=== PATIENT | female | born 1950 | race Caucasian/White ===

== ENCOUNTER 2018-07-11 20:28 | Inpatient (IN) | payer MEDICARE ==
[~2018-07-11] VITALS: Ht 152.4 cm; Wt 122.7 kg
--- NOTE | 2018-07-11 21:00 | NUR ---
PT IN WITH C/O DIARRHEA AND NEAR SYNCOPE EPISODE WHEN SHE WAS HAVING A BM. HAD EXPLOSIVE DIARRHEA, CLEANED PATIENT UP FAMILY ASSISTED. PROVIDER NOTIFIED.
[2018-07-11 21:51] LABS: BASOPHILS 0.1 % (0-2); EOSINOPHILS 0.3 % (0-7); HEMOGLOBIN 13.1 g/dL (12-16); IMMATURE GRANULOCYTES 0.4 % (0-5); LYMPHOCYTES 4.5 % (15-50); MCH 31.3 pg (26.0-34.0); MCHC 32.8 g/dL (31.0-37.0); MCV 95.5 fL (80.0-100.0); MEAN PLATELET VOLUME 11.1 fL (7.4-10.4); MONOCYTES 8.6 % (2-11); NEUTROPHILS 86.1 % (40-80); PLATELET COUNT 222 10x3/uL (130-400); RBC 4.19 10x6/uL (4.00-5.40); RDW 14.2 % (11.5-14.5); WBC 19.6 10x3/uL (4.8-10.8)
[2018-07-11 22:09] LABS: ALBUMIN 3.4 g/dL (3.4-5.0); ALKALINE PHOSPHATASE 106 U/L (46-116); ALT (SGPT) 25 U/L (10-68); CALC OSMOLALITY 286 mosm/kg (275-300); CARBON DIOXIDE 20.2 mmol/L (21.0-32.0); CHLORIDE - SERUM 104 mmol/L (98-107); CREATININE - SERUM 1.8 mg/dL (0.6-1.3); GLUCOSE 211 mg/dL (74-106); POTASSIUM - SERUM 5.2 mmol/L (3.5-5.1); PROTEIN - SERUM 7.4 g/dL (6.4-8.2); SODIUM 137 mmol/L (136-145); UREA NITROGEN 33 mg/dL (7-18); eGFR NON AFRICAN AMERICAN 30 mL/min (90-120)
[2018-07-11 22:16] LABS: AMYLASE - SERUM 299 U/L (25-115); LIPASE 98 U/L (73-393)
[2018-07-11 22:17] LABS: TROPONIN-I < 0.017 ng/mL (0.000-0.060)
[2018-07-11 22:28] VITALS: BP 131/68
--- NOTE | 2018-07-11 23:08 | NUR ---
CLEANED PATIENT UP SINCE ARRIVAL SHE HAS HAD THREE EPISODES OF DIARRHEA, THE LAST ONE HAD BLOOD STREAKS, BROWN STOOL. PATIENT GOING TO CT AFTER CLEANUP VIA STRETCHER PER TECH.
[2018-07-12] VITALS (9 sets, daily range): BP systolic 109–132; BP diastolic 40–61; BMI 48.9
--- NOTE | 2018-07-12 00:15 | NUR ---
PT RESTING QUIETLY ON STRETCHER AT THIS TIME, HER [id number] AT BEDSIDE, CALL LIGHT WITHIN REACH, NO COMPLAINTS AT THIS TIME.
--- NOTE | 2018-07-12 02:45 | NUR ---
PT ARRIVED TO UNIT FROM ER VIA STRETCHER TO ROOM 2101. ABLE TO STAND AND WALK TO BED. ALERT/ORIENTED. IV FLAGYL COMPLETING TO IV IN RIGHT HAND. PT SETTLED INTO BED.
[2018-07-12] MEDS ORDERED: LISINOPRIL40 MG PO (03:19)
[2018-07-12] MEDS ORDERED: NOVOLIN 70/30 110 ML (03:20)
[2018-07-12] MEDS ORDERED: LOVASTATIN20 MG (03:22)
[2018-07-12] MEDS ORDERED: LOPRESSOR25 MG (03:22)
[2018-07-12] MEDS ORDERED: ELAVIL75 MG PO (03:22)
[2018-07-12] MEDS ORDERED: OMEPRAZOLE40 MG (03:26)
[2018-07-12] MEDS ORDERED: HYDROCODON-ACE1 EAC7 PO (03:27)
[2018-07-12] MEDS ORDERED: ANTIVERT12.5 MG (03:27)
[2018-07-12 04:10] LABS: APPEARANCE TURBID (CLEAR); BILIRUBIN NEGATIVE (NEGATIVE); COLOR DK YELLOW (YELLOW); GLUCOSE 500 mg/dL (NEGATIVE); KETONE NEGATIVE (NEGATIVE); NITRITE NEGATIVE (NEGATIVE); PROTEIN TRACE mg/dL (NEGATIVE); SPECIFIC GRAVITY 1.015 (1.005-1.020); UROBILINOGEN NORMAL (NORMAL); WHITE CELLS - URINE >50 /hpf (0-5)
[2018-07-12 04:11] LABS: BACTERIA MANY /hpf (NONE SEEN); EPITHELIAL CELLS 0-5 /hpf (0-5); RED CELLS - URINE 0-5 /hpf (0-5)
--- NOTE | 2018-07-12 05:01 | NUR ---
ADMISSION HISTORY AND ASSESSMENT COMPLETED. ATTEMPTED TO COMPLETE HOME MED LIST AND PT ONLY ABLE TO PROVIDE SOME NAMES, VERY FEW DOSAGES. SHE SAYS A COMPLETE HOME MED LIST WAS GIVEN TO THE EMS PEOPLE, BUT NO ONE COULD FIND IT IN THE ER. WILL HAVE FAMILY BRING MEDS TOMORROW FOR CLARIFICATION.
--- NOTE | 2018-07-12 07:59 | NUR ---
PATIENT IS ALERT/ORIENT. IN BATHROOM. EXPLOSIVE DIARRHEA. NEW GOWN AND BRIEFS GIVEN TO PATIENT. ABLE TO REACH CALL LIGHT. WILL CONTINUE TO MONITOR
[2018-07-12] MEDS ORDERED: AMITRIPTYLINE100 MG PO (09:28)
[2018-07-12] MEDS ORDERED: TOPROL XL50 MG PO (09:31)
[2018-07-12] MEDS ORDERED: METOPROLOL TART50 MG PO (09:32)
[2018-07-12] MEDS ORDERED: LOVASTATIN20 MG PO (09:33)
[2018-07-12] MEDS ORDERED: OMEPRAZOLE20 M1 PO (09:35)
[2018-07-12] MEDS ORDERED: CYCLOBENZAPRINE10 MG PO (09:37)
[2018-07-12] MEDS ORDERED: CELEXA40 MG PO (09:38)
[2018-07-12] MEDS ORDERED: HCTZ25 MG PO (09:39)
[2018-07-12] MEDS ORDERED: MOBIC7.5 MG PO (09:39)
[2018-07-12] MEDS ORDERED: ADIPEX-P37.5 M1 PO (09:40)
[2018-07-12] MEDS ORDERED: NOVOLIN 70/30 110 ML SC (09:43)
[2018-07-12] MEDS ORDERED: HUMULIN R100 U/ML SC (09:44)
--- NOTE | 2018-07-12 10:21 | NUR ---
DAUGHTER BROUGHT IN MEDICATIONS PATIENT WAS TAKING AT HOME. RECONS MEDICATIONS. WAITING ON DR SIMONS TO LOOK OVER RECONSILED MEDICATIONS
--- NOTE | 2018-07-12 10:56 | NUR ---
ALERT AND ORIENTED X4. RESTING IN BED. QM NURSE SHIFT ASSESSMENT REVIEWED. AGREE WITH ASSESSMENT. KAPIL GUPTA RECONCILES MEDICATIONS ACCORDING TO MEDICATION BOTTLES. MEDICATIONS RETURNED TO FAMILY TO RETURN HOME.
[2018-07-12 16:52] LABS: ANION GAP 15.7 mmol/L (8-16); CALCIUM 8.2 mg/dL (8.5-10.1); CARBON DIOXIDE 21.2 mmol/L (21.0-32.0); CREATININE - SERUM 1.5 mg/dL (0.6-1.3); POTASSIUM - SERUM 4.9 mmol/L (3.5-5.1)
--- NOTE | 2018-07-12 17:42 | NUR ---
TELEMTRY HOOKED UP TO PATIENT PER ORDER
--- NOTE | 2018-07-12 19:34 | NUR ---
NOTED ORDER FOR UA CULTURE.SPOKE WITH LAB AND THEY STILL HAVE SPECIMEN FROM LAST NIGHT AND WILL CULTURE SPECIMEN.
--- NOTE | 2018-07-12 19:40 | NUR ---
INITIAL ROUNDS AND ASSESSMENT COMPLETED. PT RESTING IN BED. ALERT/ORIENTED. IV TO RIGHT HAND WITH NS @ [facility] FOR ABT. STILL HAVING LOOSE/DIARRHEA STOOL. SCDS AVAILABLE, PT DECLINES TO WEAR. NONLABORED RESPIRATIONS ON ROOM AIR. SR PER TELEMETRY. MONITOR AND CPOC.
--- NOTE | 2018-07-12 22:42 | NUR ---
BEDTIME MED GIVEN. FSBS 244, 4 UNITS OF HUMALOG ADMINISTERED. DR CODY ALSO JUST ROUNDED ON PATIENT.
[2018-07-13 03:43] VITALS: BP 138/64
[2018-07-13 06:08] LABS: ALBUMIN 2.8 g/dL (3.4-5.0); BILIRUBIN - TOTAL 0.35 mg/dL (0.2-1.3); CALCIUM 8.6 mg/dL (8.5-10.1); CARBON DIOXIDE 22.7 mmol/L (21.0-32.0); CREATININE - SERUM 1.3 mg/dL (0.6-1.3); MAGNESIUM - SERUM 1.7 mg/dL (1.8-2.4); POTASSIUM - SERUM 4.7 mmol/L (3.5-5.1); PROTEIN - SERUM 6.4 g/dL (6.4-8.2)
[2018-07-13 06:08] LABS: BASOPHILS 0.2 % (0-2); EOSINOPHILS 3.9 % (0-7); HEMATOCRIT 34.9 % (36.0-48.0); HEMOGLOBIN 11.3 g/dL (12-16); IMMATURE GRANULOCYTES 0.2 % (0-5); LYMPHOCYTES 22.8 % (15-50); MCHC 32.4 g/dL (31.0-37.0); MCV 95.9 fL (80.0-100.0); MEAN PLATELET VOLUME 11.3 fL (7.4-10.4); MONOCYTES 12.3 % (2-11); NEUTROPHILS 60.6 % (40-80); PLATELET COUNT 180 10x3/uL (130-400); RBC 3.64 10x6/uL (4.00-5.40); RDW 14.3 % (11.5-14.5)
[2018-07-13 07:06] LABS: WBC 4.9 10x3/uL (4.8-10.8)
[2018-07-13 08:27] VITALS: BP 146/65
[2018-07-13 10:24] VITALS: Ht 152.4 cm; Wt 122.7 kg
[2018-07-13 13:34] VITALS: BP 150/66
--- NOTE | 2018-07-13 17:00 | NUR ---
ALERT AND ORIENTED X4. LT UPPER ARM IV INFILTRATED. DC LT UPPER ARM IV TIP INTACT. REQUESTING NO IV RESITE. CALL JACQUELYN SHETTY PER PATIENT REQUEST. OK TO CHANGE ANTIBIOTICS TO PO. SINUS RHYTHM ON TELEMETRY. DENIES ANY NEEDS. CONTINUE PLAN OF CARE AND SAFETY PRECAUTIONS.
[2018-07-13 17:57] VITALS: BP 140/78
[2018-07-13 21:43] VITALS: BP 147/65
--- NOTE | 2018-07-13 22:57 | NUR ---
BEDTIME MEDS GIVEN. FSBS 241, SLIDING SCALE HUMALOG 4 UNITS GIVEN. PT ALSO GIVEN THE CORTISPORIN TO APPLY.
[2018-07-14 01:07] VITALS: BP 120/61
[2018-07-14 05:40] LABS: BASOPHILS 0.2 % (0-2); EOSINOPHILS 3.6 % (0-7); HEMATOCRIT 35.2 % (36.0-48.0); HEMOGLOBIN 11.6 g/dL (12-16); IMMATURE GRANULOCYTES 0.4 % (0-5); MCH 31.3 pg (26.0-34.0); MCV 94.9 fL (80.0-100.0); MEAN PLATELET VOLUME 10.7 fL (7.4-10.4); MONOCYTES 10.5 % (2-11); NEUTROPHILS 64.3 % (40-80); PLATELET COUNT 179 10x3/uL (130-400); RBC 3.71 10x6/uL (4.00-5.40)
[2018-07-14 05:57] VITALS: BP 129/67
[2018-07-14 06:11] LABS: ALBUMIN 2.8 g/dL (3.4-5.0); ANION GAP 15.8 mmol/L (8-16); BILIRUBIN - TOTAL 0.39 mg/dL (0.2-1.3); CALCIUM 8.5 mg/dL (8.5-10.1); CARBON DIOXIDE 24.1 mmol/L (21.0-32.0); CREATININE - SERUM 1.3 mg/dL (0.6-1.3); MAGNESIUM - SERUM 1.5 mg/dL (1.8-2.4); POTASSIUM - SERUM 4.9 mmol/L (3.5-5.1); PROTEIN - SERUM 6.6 g/dL (6.4-8.2)
[2018-07-14 08:19] VITALS: BP 151/76
[2018-07-14 12:17] VITALS: BP 156/82
[2018-07-14] MEDS ORDERED: FLAGYL500 MG PO (13:23)
--- NOTE | 2018-07-14 17:07 | MORECARE ---
CASE MANAGEMENT DISCHARGE SUMMARY PATIENT: YNES ANNA UNIT: [id number] ADM DATE: 07/12/18 AGE: 67 : 54 SEX: F ROOM/BED: D.2102 AUTHOR: ELADIO,DOC PHYSICIAN: REFERRING PHYSICIAN: DESHAWN SIMONS MD DATE OF SERVICE: 07/14/18 Discharge Plan Patient Name: YNES ANNA Facility: [facility]:[place] : 1950 Planned Disposition: Home Anticipated Discharge Date: 07/14/18 Discharge Date: Expected LOS: 2 Initial Reviewer: [email or web address] Initial Review Date: 07/14/2018 Generated: 07/14/18 6:07 pm Comments DCP- Discharge Planning Updated by [email or web address]: Kimani Grider on 07/14/18 3:[address] Patient Name: YNES ANNA Admission Status: ER Accout number: [id number] Admission Date: 07-12-2018 : 1950 Admission Diagnosis:DIARRHEA, UNSPECIFIED Attending: DESHAWN DALY Current LOS: 2 Anticipated DC Date: 07-14-2018 Planned Disposition: Home Primary Insurance: MEDICARE A & B Discharge Planning Comments: CM MET WITH PT IN ROOM TO DISCUSS DISCHARGE PLANNING AND NEEDS. PT REPORTS LIVING AT HOME INDEPENDENTLY WITH HER ADULT SON AND HIS . PT HAS ROLLING WALKER WITH SEAT AND NO MEDICAL EQUIPMENT PROVIDER PREFERENCE. PT HAS NO OUTSIDE SERVICES ASSISTING IN THE HOME. CM DISCUSSED AVAILABILITY OF HOME HEALTH, REHAB SERVICES AND MEDICAL EQUIPMENT. PT DENIES DISCHARGE NEEDS, REPORTS HER SON WILL PICK HER UP FOR DISCHARGE HOME. IMPORTANT MESSAGE FROM MEDICARE PROVIDED AND EXPLAINED. SUPERVISOR WHIPPED TOPPING NURSE NOTIFIED. Employee Relation Manager: Kimani Grider DCPIA - Discharge Planning Initial Assessment Updated by [id number]: Kimani Grider on 07/14/18 4:56 pm * Is the patient Alert and Oriented? Yes * How many steps to enter\exit or inside your home? NONE * PCP DR. CONNER IN [place] * [facility] IN [place] * Preadmission Environment Home with Family * ADLs Independent * Equipment Rolling Walker * Other Equipment WALKER WITH 4 WHEELS, SEAT AND BRAKES NO MEDICAL EQUIPMENT PROVIDER PREFERENCE * List name and contact numbers for known caregivers / representatives who currently or will assist patient after discharge: EDDIE ANNA, CHARMAINE, * Verbal permission to speak to the caregivers and representatives has been obtained from the patient. N/A * Community resources currently utilized None * Please name any agencies selected above. NONE * Additional services required to return to the preadmission environment? No * Can the patient safely return to the preadmission environment? Yes * Has this patient been hospitalized within the prior 30 days at any hospital? No Coverage Notice Reviewer: [email or web address] Tangela Grider Notice Issued Date-Time: 07/14/2018 15:00 Notice Type: IM Discharge Notice Notice Delivered To: Patient Relationship to Patient: Silver Solution Mixer Name: Delivery Method: HAND - Hand Delivered Lucia Days: Prior Verbal Notification: Recipient Understood Notice: Yes Recipient Signature: Yes Med Rec Note Co-signed by Attending: Coverage Notice Comment: Patient Name: YNES ANNA Page [phone] at 1707 All edits/amendments must be made on the electronic document DICTATION DATE: 07/14/181705 HEALTHCARE ADVISORY SERVICES MANAGER: RIK 07/14/181705 RPT#: [id number] DC DATE: STATUS: ADM IN [facility] [address] [place] [address] END OF REPORT
--- NOTE | 2018-07-14 17:07 | NUR ---
ALERT AND ORIENTED X4. SITTING ON SIDE OF BED. DISCHARGE INSTRUCTIONS GIVEN VERBALLY AND WRITTEN. DISCHARGE PAPERS SIGNED ON CHART. NO IV. ESCORT TO RIDE VIA WHEELCHAIR. REMAINS FREE FROM INJURY.
== END 2018-07-14 17:11 | disposition home or self-care (01) | DRG 392 ==
LOC: D.ER 20:28 → D.M2 07-12 00:43 → D.EDHOLD 07-12 00:43 → D.M2 07-12 01:59
PROVIDERS: Family Medicine; Internal Medicine Gastroenterology; ADMIT Family Medicine Adult Medicine
DX: A09 Infectious gastroenteritis and colitis, unspecified (principal); N39.0 Urinary tract infection, site not specified; N17.9 Acute kidney failure, unspecified; Z68.42 Body mass index [BMI] 45.0-49.9, adult; K92.1 Melena; E11.65 Type 2 diabetes mellitus with hyperglycemia; K21.9 Gastro-esophageal reflux disease without esophagitis; I10 Essential (primary) hypertension; E66.01 Morbid (severe) obesity due to excess calories; D50.9 Iron deficiency anemia, unspecified; E83.42 Hypomagnesemia; R55 Syncope and collapse

== ENCOUNTER 2018-12-25 08:00 | Outpatient (CLI) | payer MEDICARE ==
[2018-07-13 10:24] VITALS: BMI 50.3
[~2018-12-25 08:00] MED LIST: ADIPEX-P37.5 M1 PO; AMITRIPTYLINE100 MG PO; ANTIVERT12.5 MG; CELEXA40 MG PO; CYCLOBENZAPRINE10 MG PO; ELAVIL75 MG PO; FLAGYL500 MG PO; HCTZ25 MG PO; HUMULIN R100 U/ML SC; HYDROCODON-ACE1 EAC7 PO; LISINOPRIL40 MG PO; LOPRESSOR25 MG; LOVASTATIN20 MG; LOVASTATIN20 MG PO; METOPROLOL TART50 MG PO; MOBIC7.5 MG PO; NOVOLIN 70/30 110 ML; NOVOLIN 70/30 110 ML SC; OMEPRAZOLE20 M1 PO; OMEPRAZOLE40 MG; TOPROL XL50 MG PO
== END 2018-12-25 10:00 | disposition home or self-care (01) ==
LOC: D.MAMMO 08:00
PROVIDERS: ATTEND Clinical Nurse Specialist Adult Health
DX: Z12.31 Encounter for screening mammogram for malignant neoplasm of breast (principal)